=== PATIENT | male | born 1965 | race American Indian/Alaskan Native ===

== ENCOUNTER 2017-06-24 21:38 | Emergency (ER) | payer MEDICARE ==
[2017-06-24] MEDS ORDERED: TYLENOL ONE (22:03)
[2017-06-24] MEDS ORDERED: TYLENOL PO ONE (22:39)
--- NOTE | 2017-06-24 23:16 | XRay Report ---
FINAL REPORT PROCEDURE: XR ANKLE 3+V LT TECHNIQUE: LEFT ankle radiographs, AP, lateral, and oblique views. CPT 44668 HISTORY: Fall, ankle Pain COMPARISON: No prior studies are available for comparison. FINDINGS: Fracture (s) and/or Dislocation(s): No acute fracture is identified. A small well-defined ossific density identified at the tip of the medial malleolus measuring 4.6 millimeters.. Alignment: Normal. Joint space(s): Normal. Soft tissues: Normal. Bone mineralization: Mild degree osteophyte formation is noted. Foreign bodies: None. Calcaneal spurring: None. IMPRESSION: No acute fracture. An ossific density at the tip of the medial malleolus most likely represents an old avulsion fracture Osteoarthritis.
--- NOTE | 2017-06-24 23:17 | XRay Report ---
FINAL REPORT PROCEDURE: XR KNEE 3V LT TECHNIQUE: LEFT knee radiographs, 4 or more views, including AP, lateral, and oblique views. CPT 94383 HISTORY: Fall, knee Pain COMPARISON: No prior studies are available for comparison. FINDINGS: Fracture (s) and/or Dislocation(s): None . Alignment: Normal . Joint space(s): Severe degree narrowing of the medial tibiofemoral compartment is noted.. Soft tissues: Normal . Bone mineralization: Mild degree osteophyte formation is noted. Foreign bodies: None . IMPRESSION: Severe degree osteoarthritis. No acute fracture.
[2017-06-25] MEDS ORDERED: NORCO 5/325 PO ONE (02:13)
--- NOTE | 2017-06-25 02:28 | Emergency Department Report ---
HPI - General Chief Complaint: Extremity Injury, Lower Time Seen by Provider: 06/25/17 01:58 - [facility] HPI: Patient is a 52-year-old male with a history of polio and chronic pain presents to ED complaining of left knee pain from ground fall that happened about and Tuesday evening. Patient states he was in the kitchen when he tripped and fell. He denies loss of sensation, calf pain. ED Past Medical Hx - Past Medical History Previous Medical History?: Yes Additional medical history: Obesity. Left Leg Polio. Chronic Pain uses a pain clinic - Surgical History Past Surgical History?: Yes Additional Surgical History: Rt & Left Leg - Social History Smoking Status: Never Smoker Substance Use Type: None - Medications Home Medications: Home Medications Medication Instructions Recorded Confirmed Last Taken Type HYDROcodone/APAP 5-325 [[place] 1 each PO Q6H #20 tablet 06/25/17 Unknown Rx 5-325 mg TAB] Meloxicam [Mobic] 15 mg PO DAILY #20 tablet 06/25/17 Unknown Rx ED Review of Systems ROS: Stated complaint: ANKLE PAIN Other details as noted in HPI Constitutional: denies: chills, fever Eyes: denies: eye pain, eye discharge, vision change ENT: denies: ear pain, throat pain Respiratory: denies: cough, shortness of breath, wheezing Cardiovascular: denies: chest pain, palpitations Endocrine: no symptoms reported Gastrointestinal: denies: abdominal pain, nausea, diarrhea Genitourinary: denies: urgency, dysuria Musculoskeletal: arthralgia. denies: back pain, joint swelling Skin: denies: rash, lesions Neurological: denies: headache, weakness, paresthesias Psychiatric: denies: anxiety, depression Hematological/Lymphatic: denies: easy bleeding, easy bruising Physical Exam - Physical Exam Vital Signs: Vital Signs 06/24/17 21:50 Temperature 98.5 F Pulse Rate 96 H Respiratory 20 Rate Blood Pressure 157/93 [Right] O2 Sat by Pulse 97 Oximetry Physical Exam: GENERAL: Alert and oriented x3, no apparent distress, Normal Gait, atraumatic. HEAD: Head is normocephalic and a-traumatic. EYES: Extra ocular muscles are intact. Pupils are equal, round, and reactive to light and accommodation. NECK: Supple. Non edematous, No carotid bruits. No lymphadenopathy or thyromegaly. No C-spine tenderness LUNGS: Symetrical with respiration, No wheezing, no rales or crackles, CTAB. HEART: S1, S2 present, regular rate and rhythm without murmur, no rubs, no gallops. Non tender to palpation EXTREMITIES/MUSCULOSKELETAL: No cyanosis, clubbing, rash, lesions or edema. Full ROM bilaterally. UE/LE Pulses 2+ bilaterally. LE and UE 5+ strength bilaterally, straight leg raise negative bilaterally. Knee joint is intact, no tinnitus, nonerythematous, mild tenderness to palpation of the knee. Full Range of motion . NEUROLOGIC: The patient is cooperative with no focal neurologic deficits. Cranial nerves II through XII are grossly intact. Normal speech. Normal sensation in V1, V2, V3 bilaterally. Normal sensation in bilateral lower extremities, No loss of sensation, SKIN: Warm and dry, No lesions, No ulceration or induration present. ED Course Vital Signs 06/24/17 21:50 Temperature 98.5 F Pulse Rate 96 H Respiratory 20 Rate Blood Pressure 157/93 [Right] O2 Sat by Pulse 97 Oximetry ED Medical Decision Making - Medical Decision Making 52-year-old male presents with knee pain after fall ED course: Patient received Tylenol and [place] in ED Discussed patient will give referral for pain clinic and units. Discussed with patient would not be able to refill his chronic pain meds Given a refill of [place] up onto his able to follow-up with the pain clinic Discussed with patient to follow-up with pain clinic as refill as well as a primary care physician. Vital signs are normal patient is in no acute distress. Critical care attestation.: If time is entered above; I have spent that time in minutes in the direct care of this critically ill patient, excluding procedure time. ED Disposition Clinical Impression: Knee pain, chronic Qualifiers: Laterality: left Qualified Code(s): M25.562 - Pain in left knee; G89.29 - Other chronic pain Fall Qualifiers: Encounter type: initial encounter Qualified Code(s): W19.XXXA - Unspecified fall, initial encounter Disposition: TO HOME OR SELFCARE Is pt being admited?: No Does the pt Need Aspirin: No Condition: Stable Instructions: Arthralgia (ED), Knee Exercises (GEN), Knee Pain (ED) Additional Instructions: Follow-up with the primary care. Referrals given for pain management clinics around her area see -attached sheet If any symptoms worsen return to ED Prescriptions: HYDROcodone/APAP 5-325 [[place] 5-325 mg TAB] 1 each PO Q6H #20 tablet Meloxicam [Mobic] 15 mg PO DAILY #20 tablet Referrals: PRIMARY CARE,MD [Primary Care Provider] - 3-5 Days [facility] [Outside] - 3-5 Days [facility] [Outside] - 3-5 Days [facility] [Outside] - 3-5 Days Forms: Work/School Release Form(ED), Accompanied Note Time of Disposition: 02:35
[2017-06-25 04:05] VITALS: BP 159/97
== END 2017-06-25 04:07 | disposition home or self-care (01) ==
LOC: ED 21:38
DX: M25.562 Pain in left knee (principal); G89.29 Other chronic pain; E66.9 Obesity, unspecified; W01.0XXA Fall on same level from slipping, tripping and stumbling without subsequent striking against object, initial encounter; Y93.89 Activity, other specified; Y99.8 Other external cause status; Y92.89 Other specified places as the place of occurrence of the external cause
CPT/HCPCS: 99284

== ENCOUNTER 2019-01-11 10:16 | Emergency (ER) | payer MEDICARE ==
--- NOTE | 2019-01-11 11:09 | Emergency Department Report ---
ED Recheck HPI - General Chief Complaint: High BP Stated Complaint: HBP Time Seen by Provider: 01/11/19 10:54 Source: patient Mode of arrival: Ambulatory Limitations: No Limitations - History of Present Illness Initial Comments: pt is a 53 yo AA male who comes to ER for med refill. He does have an appnt Tues for total knee appnt. No cp. no sob. MD Complaint: medication refill request Symptoms Since Prior Visit: no new symptoms Context: ran out of medication Associated Symptoms: none - Related Data Previous Rx's Medication Instructions Recorded Last Taken Type Atenolol 50 mg PO BID #60 tablet 01/11/19 Unknown Rx Lisinopril [Zestril] 20 mg PO BID #60 tablet 01/11/19 Unknown Rx Allergies Allergy/AdvReac Type Severity Reaction Status Date / Time No Known Allergies Allergy Verified 06/24/17 22:10 ED Review of Systems ROS: Stated complaint: HBP Other details as noted in HPI Comment: no complaints ED Past Medical Hx - Past Medical History Hx Hypertension: Yes Hx Arthritis: Yes Additional medical history: Obesity. Left Leg Polio. Chronic Pain uses a pain clinic - Surgical History Additional Surgical History: Rt & Left Leg - Social History Smoking Status: Never Smoker Substance Use Type: None - Medications Home Medications: Home Medications Medication Instructions Recorded Confirmed Last Taken Type Atenolol 50 mg PO BID #60 tablet 01/11/19 Unknown Rx Lisinopril [Zestril] 20 mg PO BID #60 tablet 01/11/19 Unknown Rx ED Physical Exam - General Limitations: No Limitations General appearance: alert, in no apparent distress - Head Head exam: Present: atraumatic - Eye Eye exam: Present: normal appearance, PERRL Pupils: Present: normal accommodation - ENT ENT exam: Present: mucous membranes moist - Neck Neck exam: Present: normal inspection - Respiratory Respiratory exam: Present: normal lung sounds bilaterally - Cardiovascular Cardiovascular Exam: Present: regular rate - GI/Abdominal GI/Abdominal exam: Present: soft, normal bowel sounds - Rectal Rectal exam: Present: deferred - Extremities Exam Extremities exam: Present: normal inspection, full ROM - Back Exam Back exam: Present: normal inspection, full ROM - Neurological Exam Neurological exam: Present: alert, oriented X3 - Psychiatric Psychiatric exam: Present: normal affect, normal mood - Skin Skin exam: Present: warm, dry ED Course - Reevaluation(s) Reevaluation #1: 01/11/19 12:19 VS noted normal as hand written on record. Asked RN to place in chart. ED Recheck MDM - Differential Diagnosis med refill Critical care attestation.: If time is entered above; I have spent that time in minutes in the direct care of this critically ill patient, excluding procedure time. ED Disposition Clinical Impression: Medication refill, HTN (hypertension) Disposition: TO HOME OR SELFCARE Is pt being admited?: No Does the pt Need Aspirin: No Condition: Stable Instructions: Hypertension (ED) Additional Instructions: follow up with pcp take meds as instructed low salt diet Prescriptions: Atenolol 50 mg PO BID #60 tablet Lisinopril [Zestril] 20 mg PO BID #60 tablet Referrals: EDSON CARLTON [Primary Care Provider] - 3-5 Days Time of Disposition: 11:10
== END 2019-01-11 11:15 | disposition home or self-care (01) ==
LOC: ED 10:16
CPT/HCPCS: 99282

== ENCOUNTER 2019-06-04 22:37 | Emergency (ER) | payer MEDICARE ==
[2019-06-05] MEDS ORDERED: ZESTRIL PO ONE (01:26)
[2019-06-05] MEDS ORDERED: HCTZ PO ONE (01:26)
[2019-06-05] MEDS ORDERED: TYLENOL PO ONE (01:27)
--- NOTE | 2019-06-05 02:08 | Emergency Department Report ---
ED General Adult HPI - General Chief complaint: High BP Stated complaint: HIGH BP Time Seen by Provider: 06/05/19 01:26 Source: patient Mode of arrival: Wheelchair Limitations: Physical Limitation - History of Present Illness Initial comments: The patient is a 54-year-old -[place] male who presents for medication refill has hx of htn , usually controlled with lisinopril and hctz states he has been out of medication for 1 week denies complains of 2 /10 headache, pt states similar headaches in past in same location and intensity, pt denies cp no n/v no back pain no sob no lightheadedness no dizziness. pt is a/ox 3 ambulatory with steady gait. Ambulatory with steady gait. Severity scale (0 -10): 4 - Related Data Previous Rx's Medication Instructions Recorded Last Taken Type Atenolol 50 mg PO BID #60 tablet 01/11/19 Unknown Rx Lisinopril [Zestril] 20 mg PO BID #60 tablet 01/11/19 Unknown Rx Acetaminophen [Acetaminophen TAB] 1,000 mg PO Q6HR #30 tablet 06/05/19 Unknown Rx Lisinopril [Zestril TAB] 40 mg PO QDAY #30 tablet 06/05/19 Unknown Rx hydroCHLOROthiazide [HCTZ] 25 mg PO QDAY #30 tablet 06/05/19 Unknown Rx Allergies Allergy/AdvReac Type Severity Reaction Status Date / Time No Known Allergies Allergy Verified 06/24/17 22:10 ED Review of Systems ROS: Stated complaint: HIGH BP Other details as noted in HPI Constitutional: denies: chills, fever Eyes: denies: eye pain, eye discharge, vision change ENT: denies: ear pain, throat pain Respiratory: denies: cough, shortness of breath, wheezing Cardiovascular: denies: chest pain, palpitations Endocrine: no symptoms reported Gastrointestinal: denies: abdominal pain, nausea, diarrhea Genitourinary: denies: urgency, dysuria Musculoskeletal: denies: back pain, joint swelling, arthralgia Skin: denies: rash, lesions Neurological: headache. denies: weakness, numbness, paresthesias, confusion, abnormal gait, vertigo Psychiatric: denies: anxiety, depression Hematological/Lymphatic: denies: easy bleeding, easy bruising ED Past Medical Hx - Past Medical History Previous Medical History?: Yes Hx Hypertension: Yes Hx Arthritis: Yes Additional medical history: Obesity. Right Leg Polio. Chronic Pain uses a pain clinic - Surgical History Past Surgical History?: Yes Additional Surgical History: Rt & Left Leg. Left leg Knee Replacement - Social History Smoking Status: Never Smoker - Medications Home Medications: Home Medications Medication Instructions Recorded Confirmed Last Taken Type Atenolol 50 mg PO BID #60 tablet 01/11/19 Unknown Rx Lisinopril [Zestril] 20 mg PO BID #60 tablet 01/11/19 Unknown Rx Acetaminophen [Acetaminophen TAB] 1,000 mg PO Q6HR #30 tablet 06/05/19 Unknown Rx Lisinopril [Zestril TAB] 40 mg PO QDAY #30 tablet 06/05/19 Unknown Rx hydroCHLOROthiazide [HCTZ] 25 mg PO QDAY #30 tablet 06/05/19 Unknown Rx ED Physical Exam - General Limitations: Physical Limitation General appearance: alert, in no apparent distress - Head Head exam: Present: atraumatic, normocephalic - Eye Eye exam: Present: normal appearance, PERRL, EOMI Pupils: Present: normal accommodation - ENT ENT exam: Present: normal orophraynx, mucous membranes moist, TM's normal bilaterally, normal external ear exam - Neck Neck exam: Present: normal inspection, full ROM. Absent: tenderness, lymphadenopathy, thyromegaly - Respiratory Respiratory exam: Present: normal lung sounds bilaterally, chest wall tenderness. Absent: respiratory distress, wheezes, rales, rhonchi, stridor - Cardiovascular Cardiovascular Exam: Present: regular rate, normal rhythm, normal heart sounds. Absent: systolic murmur, diastolic murmur, rubs, gallop - GI/Abdominal GI/Abdominal exam: Present: soft, normal bowel sounds. Absent: distended, tenderness, guarding, rebound, rigid, bruit, hernia - Rectal Rectal exam: Present: deferred - Extremities Exam Extremities exam: Present: normal inspection, full ROM, normal capillary refill. Absent: tenderness, pedal edema, joint swelling, calf tenderness - Back Exam Back exam: Present: normal inspection, full ROM. Absent: tenderness, CVA tenderness (R), CVA tenderness (L), paraspinal tenderness, rash noted - Neurological Exam Neurological exam: Present: alert, oriented X3, CN II-XII intact, normal gait, reflexes normal. Absent: motor sensory deficit - Psychiatric Psychiatric exam: Present: normal affect, normal mood - Skin Skin exam: Present: warm, dry, intact, normal color. Absent: rash ED Course Vital Signs 06/04/19 22:45 Temperature 98.7 F Pulse Rate 85 Respiratory 18 Rate Blood Pressure 158/85 O2 Sat by Pulse 97 Oximetry ED Medical Decision Making - Medical Decision Making Headache is improved with medications given in ED plan refill Lisinopril and hydrochlorothiazide patient will follow with PCP in 3 days patient will return should symptoms worsen patient is alert and oriented 3 and a steady gait patient with no acute distress at this time. The wrist Critical care attestation.: If time is entered above; I have spent that time in minutes in the direct care of this critically ill patient, excluding procedure time. ED Disposition Clinical Impression: Essential (primary) hypertension Disposition: - TO HOME OR SELFCARE Is pt being admited?: No Does the pt Need Aspirin: No Condition: Stable Instructions: Hypertension (ED) Prescriptions: Acetaminophen [Acetaminophen TAB] 1,000 mg PO Q6HR #30 tablet hydroCHLOROthiazide [HCTZ] 25 mg PO QDAY #30 tablet Lisinopril [Zestril TAB] 40 mg PO QDAY #30 tablet Referrals: PRIMARY CARE, [Primary Care Provider] - 3-5 Days Forms: Work/School Release Form(ED) Time of Disposition: 02:18
[2019-06-05 02:39] VITALS: BP 179/85
== END 2019-06-05 02:37 | disposition home or self-care (01) ==
LOC: ED 22:37
DX: I10 Essential (primary) hypertension (principal); M19.90 Unspecified osteoarthritis, unspecified site; G89.29 Other chronic pain; Z98.890 Other specified postprocedural states; Z96.652 Presence of left artificial knee joint; Z79.899 Other long term (current) drug therapy
CPT/HCPCS: 99282

== ENCOUNTER 2019-06-07 21:29 | Emergency (ER) | payer MEDICARE ==
[2019-06-07 21:41] VITALS: BP 153/77
--- NOTE | 2019-06-07 21:53 | Event Note ---
ED Screening Note ED Screening Note: Pt states that he fell out of the bed c/o left knee pain, right elbow pain laceration to the left side of the face pt is on a pain contract pt states he had a knee replacement on the left knee on Jan 16 2019 no LOC last tetanus in Dec 2018 no allergies to meds This initial assessment/diagnostic orders/clinical plan/treatment(s) is/are subject to change based on patients health status, clinical progression and re- assessment by fellow clinical providers in the ED. Further treatment and workup at subsequent clinical providers discretion. Patient/guardian urged not to elope from the ED as their condition may be serious if not clinically assessed and managed. Initial orders include: XR of the left knee and right elbow
--- NOTE | 2019-06-07 22:49 | XRay Report ---
LEFT KNEE 3 VIEWS INDICATION: fall out of bed, left knee pain. COMPARISON: No relevant prior imaging study available. FINDINGS: Left knee arthroplasty is noted in expected position. On the first image (AP) there is a subtle thin linear lucency in the supracondylar distal left femora l metaphysis which does not extend to the cortex. This is not seen on additional views and no cortica l disruption is seen. This may be a vascular channel but is nonspecific. There is mild soft tissue swelling about the knee. No definite joint effusion. IMPRESSION: 1. Subtle linear thin lucency in the distal left femoral metaphysis in the periprosthetic supracondyl ar femur, as above. This may be an artifact. This could conceivably be a subtle, nondisplaced fractur e; however, no cortical disruption is seen and this is only seen on one view. Correlate clinically. Signer Name: Ronald Hernandez MD Signed: 06/07/2019 10:45 PM Workstation Name: [id number]
--- NOTE | 2019-06-07 23:43 | Emergency Department Report ---
ED Fall HPI - General Chief Complaint: Fall Stated Complaint: CUT ON LEFT EAR Time Seen by Provider: 06/07/19 21:50 Source: patient, family Mode of arrival: Ambulatory - History of Present Illness Initial Comments: This is a 54-year-old male that presents to the emergency room with painful left knee and a laceration to the left ear from 3-4 hours ago. Past medical history of obesity, chronic pain, hypertension, polio affecting her right lower extremity. Patient states he fell out of his bed. He hit his head on the side of his wheelchair. His noted bleeding from left ear. Patient also reports pain to her right elbow with movement. He denies loss of consciousness, visual changes, hearing loss, swelling, paresthesias. MD Complaint: fall Onset/Timin -: hour(s) Fall From: out of bed When Fall Occurred: 1-3 hours [employer] Fall Witnessed: yes, by family Place Fall Occurred: home Loss of Consciousness: none Prolonged Down Time?: no Symptoms Prior to Fall: none Location: face (left ear) Location - Extremities: Left: Knee Severity: moderate Severity scale (0 -10): 8 Quality: aching Context: history of frequent falls Associated Symptoms: denies - Related Data Previous Rx's Medication Instructions Recorded Last Taken Type Atenolol 50 mg PO BID #60 tablet 01/11/19 Unknown Rx Lisinopril [Zestril] 20 mg PO BID #60 tablet 01/11/19 Unknown Rx Acetaminophen [Acetaminophen TAB] 1,000 mg PO Q6HR #30 tablet 06/05/19 Unknown Rx Lisinopril [Zestril TAB] 40 mg PO QDAY #30 tablet 06/05/19 Unknown Rx hydroCHLOROthiazide [HCTZ] 25 mg PO QDAY #30 tablet 06/05/19 Unknown Rx Atenolol [Tenormin] 50 mg PO BID #60 tab 06/07/19 Unknown Rx cephALEXin [Keflex] 500 mg PO Q12HR #14 cap 06/08/19 Unknown Rx Allergies Allergy/AdvReac Type Severity Reaction Status Date / Time No Known Allergies Allergy Verified 06/07/19 21:43 ED Review of Systems ROS: Stated complaint: CUT ON LEFT EAR Other details as noted in HPI Constitutional: denies: chills, fever Respiratory: denies: cough, shortness of breath, wheezing Cardiovascular: denies: chest pain, palpitations Gastrointestinal: denies: abdominal pain, nausea, diarrhea Musculoskeletal: arthralgia (left knee and right elbow.). denies: back pain, joint swelling Skin: lesions (laceration left ear). denies: rash Neurological: denies: headache, weakness, paresthesias Psychiatric: denies: anxiety, depression ED Past Medical Hx - Past Medical History Hx Hypertension: Yes Hx Arthritis: Yes Additional medical history: Obesity. Right Leg Polio. Chronic Pain uses a pain clinic - Surgical History Additional Surgical History: Rt & Left Leg. Left leg Knee Replacement - Social History Smoking Status: Never Smoker Substance Use Type: None - Medications Home Medications: Home Medications Medication Instructions Recorded Confirmed Last Taken Type Atenolol 50 mg PO BID #60 tablet 01/11/19 Unknown Rx Lisinopril [Zestril] 20 mg PO BID #60 tablet 01/11/19 Unknown Rx Acetaminophen [Acetaminophen TAB] 1,000 mg PO Q6HR #30 tablet 06/05/19 Unknown Rx Lisinopril [Zestril TAB] 40 mg PO QDAY #30 tablet 06/05/19 Unknown Rx hydroCHLOROthiazide [HCTZ] 25 mg PO QDAY #30 tablet 06/05/19 Unknown Rx Atenolol [Tenormin] 50 mg PO BID #60 tab 06/07/19 Unknown Rx cephALEXin [Keflex] 500 mg PO Q12HR #14 cap 06/08/19 Unknown Rx ED Physical Exam - General Limitations: Physical Limitation General appearance: alert, in no apparent distress, obese (morbidly) - Respiratory Respiratory exam: Present: normal lung sounds bilaterally. Absent: respiratory distress - Cardiovascular Cardiovascular Exam: Present: regular rate, normal rhythm. Absent: systolic murmur, diastolic murmur, rubs, gallop - GI/Abdominal GI/Abdominal exam: Present: soft, normal bowel sounds. Absent: distended, tenderness, guarding, rebound, rigid - Expanded Lower Extremity Exam Left Knee exam: Present: tenderness (tenderness to lateral patella), pain w/ pronation/supination. Absent: full ROM (Limited range of motion secondary), swelling, abrasion, laceration, ecchymosis, deformity, crepidus, full knee extension Lower Leg exam: Present: full ROM. Absent: swelling, abrasion, laceration, ecchymosis, deformity, crepidus, erythema, palpable cord, Ricarda's sign Ankle exam: Present: normal inspection, full ROM Foot/Toe exam: Present: normal inspection, full ROM Neuro vascular tendon exam: Present: no vascular compromise Gait: Positive: not tested/not observed - Neurological Exam Neurological exam: Present: alert, oriented X3 - Psychiatric Psychiatric exam: Present: normal affect, normal mood - Skin Skin exam: Present: warm, dry, normal color, other. Absent: intact, rash - Expanded Skin Exam Expanded Type of lesion: Present: laceration Distribution of rash: other (john of helix) Description of rash: Present: size (1 centimeter irregular into the dermis, flap, clean), erythematous. Absent: discharge ED Course Vital Signs 06/07/19 21:37 Temperature 98.6 F Pulse Rate 75 Respiratory 18 Rate Blood Pressure 153/77 O2 Sat by Pulse 98 Oximetry - Laceration /Wound Repair Left Anterior Proximal Face Wound Location: face (left ear, john of helix) Wound Length (cm): 1 Wound's Depth, Shape: into muscle, irregular, flap Wound Explored: clean Irrigated w/ Saline (ccs): 20 Betadine Prep?: Yes Anesthesia: 1% Lidocaine Volume Anesthetic (ccs): 2 Wound Repaired With: sutures Suture Size/Type: 6:0 Number of Sutures: 5 Layer Closure?: No Sterile Dressing Applied?: Yes ED Medical Decision Making - Radiology Data Radiology results: report reviewed LEFT KNEE 3 VIEWS INDICATION: fall out of bed, left knee pain. COMPARISON: No relevant prior imaging study available. FINDINGS: Left knee arthroplasty is noted in expected position. On the first image (AP) there is a subtle thin linear lucency in the supracondylar distal left femoral metaphysis which does not extend to the cortex. This is not seen on additional views and no cortical disruption is seen. This may be a vascular channel but is nonspecific. There is mild soft tissue swelling about the knee. No definite joint effusion. IMPRESSION: 1. Subtle linear thin lucency in the distal left femoral metaphysis in the periprosthetic supracondylar femur, as above. This may be an artifact. This could conceivably be a subtle, nondisplaced fracture; however, no cortical disruption is seen and this is only seen on one view. Correlate clinically. - Medical Decision Making Patient was examined by me. Past medical history obesity, hypertension, chronic pain, polio affects right lower extremity. Vitals are normal and patient is in no acute distress. Sasha once while in the ER. Obtained a x-ray of left knee. X-rays dictated by radiologist and report reviewed by myself. Subtle linear thin lucency in the distal left femoral metaphysis in the periprosthetic supracondylar femur, as above. This may be an artifact. This could conceivably be a subtle, nondisplaced fracture; however, no cortical disruption is seen and this is only seen on one view. Correlate clinically. A knee brace applied to left knee. The laceration was closed with sutures, review note. Patient informed of results. Referral to a therapeutic surgeon for follow-up. Patient is followed by pain management and instructed to continue taking current pain medication. Start atenolol 50 mg by mouth twice a day. Plan discussed with patient to discharge home and treat outpatient. He agrees with ER plan. Patient discharged home in stable condition. Follow up with PCP in 2-3 days. Critical care attestation.: If time is entered above; I have spent that time in minutes in the direct care of this critically ill patient, excluding procedure time. ED Disposition Clinical Impression: Medication refill Knee pain, acute Qualifiers: Laterality: left Qualified Code(s): M25.562 - Pain in left knee Laceration of left ear Qualifiers: Encounter type: initial encounter Qualified Code(s): S01.312A - Laceration without foreign body of left ear, initial encounter Fall Qualifiers: Encounter type: initial encounter Qualified Code(s): W19.XXXA - Unspecified fall, initial encounter Disposition: TO HOME OR SELFCARE Is pt being admited?: No Does the pt Need Aspirin: No Condition: Stable Instructions: Laceration (ED), Arthralgia (ED), Suture Care (ED) Additional Instructions: Take antibiotics as prescribed for the full course. Keep wound clean and dry for 48 hours. Have sutures removed in 7-10 days by your primary care doctor or return to the emergency room. Follow-up with orthopedic surgeon as discussed for visit for further evaluation of left knee. When applying weight to the left lower extremity. Continue taking your scheduled pain medication to decrease pain. Return to the emergency room if oriented, swollen, foul discharge, or fever. Prescriptions: cephALEXin [Keflex] 500 mg PO Q12HR #14 cap Atenolol [Tenormin] 50 mg PO BID #60 tab Referrals: EDSON CARLTON MD [Primary Care Provider] - 3-5 Days CLAUDIA SIFUENTES MD [Staff Physician] - 3-5 Days [facility] [Provider Group] - 3-5 Days Time of Disposition: 23:53
[2019-06-07] MEDS ORDERED: NORCO 5/325 PO ONE (23:48)
[2019-06-08] MEDS ORDERED: XYLOCAINE 2% INFILTRATI ONE (00:37)
== END 2019-06-08 01:40 | disposition home or self-care (01) ==
LOC: ED 21:29
DX: S01.312A Laceration without foreign body of left ear, initial encounter (principal); M25.562 Pain in left knee; M25.522 Pain in left elbow; Z76.0 Encounter for issue of repeat prescription; I10 Essential (primary) hypertension; M19.90 Unspecified osteoarthritis, unspecified site; G89.29 Other chronic pain; Z96.652 Presence of left artificial knee joint; Z79.899 Other long term (current) drug therapy; W06.XXXA Fall from bed, initial encounter; Y93.84 Activity, sleeping; Y92.019 Unspecified place in single-family (private) house as the place of occurrence of the external cause; Y99.8 Other external cause status
CPT/HCPCS: 29530

== ENCOUNTER 2020-01-18 23:10 | Emergency (ER) | payer MEDICARE ==
[2020-01-19] MEDS ORDERED: SODIUM CHLORIDE 0.9% 1000 ML 1,000 ML IV ONE (00:43)
--- NOTE | 2020-01-19 00:44 | Emergency Department Report ---
- General Chief complaint: Weakness Stated complaint: WEAKNESS Time Seen by Provider: 01/19/20 00:42 Source: patient, EMS Mode of arrival: Wheelchair Limitations: Physical Limitation - History of Present Illness Initial comments: Patient is a 54-year-old male that presents emergency room with multiple complaints. Patient is complaining of generalized weakness. Patient states he is always had leg weakness and has not been ambulatory for 1 year. Patient states he is now having arm weakness and numbness. Patient states his arm weakness and arm numbness have been going on for 2 weeks. Patient states his arm numbness is worse with movement of his neck. Patient also complains he is having increased neck pain. Patient states she has a past medical history of chronic neck pain and back pain. Patient states his back pain has been worsening over the past 2 weeks but he is due for an epidural shot to his back. Patient states he saw his PCP yesterday. Patient denies facial numbness.. Patient denies facial drooping. Patient states he is on disability for polio as a child. Patient states he has a past medical history of arthritis and hypertension, gout, chronic neck and back pain. Patient gets regular epidurals for his neck and back pain. Patient states he had a knee replacement to his right and left knees and he has not been ambulatory since. Patient states he is nonambulatory. Patient denies past medical history of diabetes. MD Complaint: generalized weakness -: Gradual Location: generalized Quality: tingling, numbness Consistency: constant Improves with: rest Worsens with: movement Associated Symptoms: denies: chest pain, confusion, dark stools, diaphoresis, dysuria, easy bruising, fever/chills, headaches, loss of appetite, nausea/vomiting, myalgias, rash, shortness of breath, syncope - Related Data Previous Rx's Medication Instructions Recorded Last Taken Type Lisinopril [Zestril] 20 mg PO BID #60 tablet 01/11/19 Unknown Rx atenoloL [Atenolol] 50 mg PO BID #60 tablet 01/11/19 Unknown Rx Acetaminophen [Acetaminophen TAB] 1,000 mg PO Q6HR #30 tablet 06/05/19 Unknown Rx hydroCHLOROthiazide [HCTZ] 25 mg PO QDAY #30 tablet 06/05/19 Unknown Rx lisinopriL [Zestril TAB] 40 mg PO QDAY #30 tablet 06/05/19 Unknown Rx atenoloL [Tenormin] 50 mg PO BID #60 tab 06/07/19 Unknown Rx cephALEXin [Keflex] 500 mg PO Q12HR #14 cap 06/08/19 Unknown Rx Cyclobenzaprine HCl [Flexeril 5 MG 5 mg PO TID PRN #15 tab 01/19/20 Unknown Rx TAB] methylPREDNISolone [Medrol 4MG 4 mg PO DAILY 6 Days #1 tab.ds.pk 01/19/20 Unknown Rx DOSEPAK (21 tabs)] Allergies Allergy/AdvReac Type Severity Reaction Status Date / Time No Known Allergies Allergy Verified 06/07/19 21:43 ED Review of Systems ROS: Stated complaint: WEAKNESS Other details as noted in HPI Constitutional: weakness. denies: chills, fever Eyes: denies: eye pain, eye discharge, vision change ENT: denies: ear pain, throat pain Respiratory: denies: cough, shortness of breath, wheezing Cardiovascular: denies: chest pain, palpitations Endocrine: no symptoms reported Gastrointestinal: denies: abdominal pain, nausea, diarrhea Genitourinary: denies: urgency, dysuria Musculoskeletal: denies: joint swelling, arthralgia Skin: denies: rash, lesions Neurological: weakness, numbness. denies: headache, paresthesias Psychiatric: denies: anxiety, depression Hematological/Lymphatic: denies: easy bleeding, easy bruising ED Past Medical Hx - Past Medical History Previous Medical History?: Yes Hx Hypertension: Yes Hx Arthritis: Yes Additional medical history: Obesity. Right Leg Polio. Chronic Pain uses a pain clinic ,gout - Surgical History Past Surgical History?: Yes Additional Surgical History: Rt & Left Leg. Left leg Knee Replacement - Family History Family history: no significant - Social History Smoking Status: Never Smoker Substance Use Type: None - Medications Home Medications: Home Medications Medication Instructions Recorded Confirmed Last Taken Type Lisinopril [Zestril] 20 mg PO BID #60 tablet 01/11/19 Unknown Rx atenoloL [Atenolol] 50 mg PO BID #60 tablet 01/11/19 Unknown Rx Acetaminophen [Acetaminophen TAB] 1,000 mg PO Q6HR #30 tablet 06/05/19 Unknown Rx hydroCHLOROthiazide [HCTZ] 25 mg PO QDAY #30 tablet 06/05/19 Unknown Rx lisinopriL [Zestril TAB] 40 mg PO QDAY #30 tablet 06/05/19 Unknown Rx atenoloL [Tenormin] 50 mg PO BID #60 tab 06/07/19 Unknown Rx cephALEXin [Keflex] 500 mg PO Q12HR #14 cap 06/08/19 Unknown Rx Cyclobenzaprine HCl [Flexeril 5 MG 5 mg PO TID PRN #15 tab 01/19/20 Unknown Rx TAB] methylPREDNISolone [Medrol 4MG 4 mg PO DAILY 6 Days #1 tab.ds.pk 01/19/20 Unknown Rx DOSEPAK (21 tabs)] ED Physical Exam - General Limitations: Physical Limitation General appearance: alert, in no apparent distress - Head Head exam: Present: atraumatic, normocephalic - Eye Eye exam: Present: normal appearance, PERRL Pupils: Present: normal accommodation - ENT ENT exam: Present: mucous membranes moist - Neck Neck exam: Present: normal inspection - Respiratory Respiratory exam: Present: normal lung sounds bilaterally. Absent: respiratory distress, wheezes, rales - Cardiovascular Cardiovascular Exam: Present: regular rate, normal rhythm. Absent: systolic murmur, diastolic murmur, rubs, gallop - GI/Abdominal GI/Abdominal exam: Present: soft, normal bowel sounds. Absent: distended, tenderness, guarding - Rectal Rectal exam: Present: deferred - Extremities Exam Extremities exam: Present: normal inspection - Back Exam Back exam: Present: normal inspection - Neurological Exam Neurological exam: Present: alert, oriented X3 - Psychiatric Psychiatric exam: Present: normal affect, normal mood - Skin Skin exam: Present: warm, dry, intact, normal color. Absent: rash - Assessment Assessment Interval: Baseline - Level of Consciousness 1a. Level of Consciousness: alert/keenly responsive - LOC Questions 1b. LOC Questions: answers both correctly - LOC Command 1c. LOC Commands: performs tasks correctly - Best Gaze 2. Best Gaze: normal - Visual 3. Visual: no visual loss - Facial Palsy 4. Facial Palsy: normal symmetrical movement - Motor Arm 5a. Motor Arm Left: no drift 5b. Motor Arm Right: no drift - Motor Leg 6a. Motor Leg Left: no movement 6b. Motor Leg Right: no movement - Limb Ataxia 7. Limb Ataxia: absent - Sensory 8. Sensory: normal - Best Language 9. Best Language: no aphasia - Dysarthria 10. Dysarthria: normal - Extinction and Inattention 11. Extinction/Inattention: no abnormality - Scoring Total Score: 8 Stroke Severity: Moderate Stroke ED Course Vital Signs 01/18/20 01/19/20 01/19/20 23:15 00:43 02:19 Pulse Rate 85 65 64 Respiratory 20 18 16 Rate Blood Pressure 161/90 Blood Pressure 168/94 [Left] O2 Sat by Pulse 96 96 99 Oximetry 01/19/20 03:22 Pulse Rate 85 Respiratory 18 Rate Blood Pressure Blood Pressure 163/97 [Left] O2 Sat by Pulse 99 Oximetry - Reevaluation(s) Reevaluation #1: I discussed all results and clinical findings with patient. I discussed plan of care with patient. Patient agrees with plan of care. Patient is stable for discharge. Patient will be discharged home. Patient given discharge instructions. Patient voiced understanding of discharge instructions. Patient states he is feeling better. Patient states is able to move his arms much better. Patient states that the pain and numbness in his arms have res olved. Patient states he is ready to go home. 01/19/20 04:23 - Consultations Consultation #1: I discussed case with neurologist, Dr. Lemons. He recommends outpatient follow-up and an MRI as an outpatient. 01/19/20 04:20 ED Medical Decision Making - Lab Data Result diagrams: 01/19/20 01:19 01/19/20 01:19 Laboratory Results - last 24 hr 01/19/20 01/19/20 01/19/20 01:19 01:19 03:23 WBC 8.0 RBC 4.97 Hgb 13.0 Hct 40.3 MCV 81 L MCH 26 L MCHC 32 RDW 14.5 Plt Count 264 Lymph % (Auto) 19.0 [place] % (Auto) 4.0 Eos % (Auto) 4.1 Baso % (Auto) 0.2 Lymph # 1.5 [place] # 0.3 Eos # 0.3 Baso # 0.0 Seg Neutrophils % 72.7 H Seg Neutrophils # 5.8 Sodium 139 Potassium 4.8 Chloride 103.6 Carbon Dioxide 23 Anion Gap 17 BUN 14 Creatinine 0.8 Estimated GFR > 60 BUN/Creatinine Ratio 18 Glucose 121 H Calcium 9.1 Magnesium 2.40 H Total Bilirubin 0.30 AST 24 ALT 18 Alkaline Phosphatase 103 Troponin T < 0.010 Total Protein 6.9 Albumin 4.2 Albumin/Globulin Ratio 1.6 Urine Color Yellow Urine Turbidity Clear Urine pH 6.0 Ur Specific [place] 1.014 Urine Protein <15 mg/dl Urine Glucose (UA) Neg Urine Ketones Neg Urine Blood Sm Urine Nitrite Neg Urine Bilirubin Neg Urine Urobilinogen < 2.0 Ur Leukocyte Esterase Neg Urine WBC (Auto) 1.0 Urine RBC (Auto) 2.0 U Epithel Cells (Auto) < 1.0 Urine Bacteria (Auto) 1+ Urine Mucus Few - EKG Data -: EKG Interpreted by Me EKG shows normal: sinus rhythm, axis, intervals, QRS complexes, ST-T waves Rate: normal - Radiology Data Radiology results: report reviewed, image reviewed interpreted by me: No acute findings on chest x-ray. CT head cervical spine INDICATION: Neck pain following fall FINDINGS: The vertebral body heights are intact with no compression fractures seen. There is disc space narrowing throughout the cervical spine with anterior and posterior spurring. No fracture or subluxation. No epidural hematoma. There is moderate facet arthropathy without posterior element fracture. Midline spurring results in canal stenosis at several levels. No odontoid or spinous process fracture. No acute abnormality. IMPRESSION: Relatively advanced cervical spondylosis but no acute abnormality. Head CT without intravenous contrast INDICATION: Right-sided weakness COMPARISON: None FINDINGS: The ventricles are normal in size and position. No hemorrhage or extra-axial fluid collection. No edema or mass effect. No focal infarct seen. Portions of the sinuses visualized are clear. No skull fracture identified. IMPRESSION: Negative head CT - Medical Decision Making Patient is a 54-year-old male that presents emergency room complaints of neck pain, arm weakness, generalized weakness, numbness tingling to the right arm. Patient symptoms been going on for 2 weeks. Patient saw his primary care and he said nothing was done. Patient had labs done were unremarkable. Patient was given fluids and steroids and his symptoms improved. Due to the patient complaints patient had a head CT, neck CT and a chest x-ray and EKG. EKG shows no acute findings. Head CT shows no acute findings. Neck CT shows no acute findings. Patient discharged home. Patient stable for discharge. - Differential Diagnosis Weakness, nerve entrapment, dehydration, electrolyte imbalance, neck pain Critical care attestation.: If time is entered above; I have spent that time in minutes in the direct care of this critically ill patient, excluding procedure time. ED Disposition Clinical Impression: Weakness, Arm numbness, Neck pain Chronic back pain Qualifiers: Back pain location: low back pain Back pain laterality: bilateral Sciatica presence: without sciatica Qualified Code(s): M54.5 - Low back pain Disposition: TO HOME OR SELFCARE Is pt being admited?: No Does the pt Need Aspirin: No Condition: Stable Instructions: Cervical Sprain (ED), Chronic Back Pain (ED), Back Pain (ED) Additional Instructions: I patient to follow-up with primary care in 2 to 3 days. Patient to follow-up with neurologist in 2 to 3 days. Patient to rest. Patient to increase water. Patient to take Tylenol or ibuprofen as needed for pain. Patient to take meds as directed. Patient to return to the ER if condition worsens, changes or new symptoms arise. Prescriptions: Cyclobenzaprine HCl [Flexeril 5 MG TAB] 5 mg PO TID PRN #15 tab PRN Reason: Spasms methylPREDNISolone [Medrol 4MG DOSEPAK (21 tabs)] 4 mg PO DAILY 6 Days #1 tab.aries Referrals: PRIMARY CARE, [Primary Care Provider] - 2-3 Days Time of Disposition: 04:27
--- NOTE | 2020-01-19 01:38 | XRay Report ---
CHEST 1 VIEW INDICATION / CLINICAL INFORMATION: Weakness. COMPARISON: None available. FINDINGS: SUPPORT DEVICES: None. HEART / MEDIASTINUM: No significant abnormality. LUNGS / PLEURA: No significant pulmonary or pleural abnormality. No pneumothorax. ADDITIONAL FINDINGS: No significant additional findings. IMPRESSION: 1. No significant change Signer Name: Atul Pederson MD Signed: 01/19/2020 1:34 AM Workstation Name: [id number]
[2020-01-19 01:45] LABS: Basophils % (Auto) 0.2 % (0.0-1.8); Eosinophils # (Auto) 0.3 K/mm3 (0.0-0.4); Eosinophils % (Auto) 4.1 % (0.0-4.3); Hematocrit 40.3 % (35.5-45.6); Lymphocytes # (Auto) 1.5 K/mm3 (1.2-5.4); Mean Corpuscular HGB Conc 32 % (32-34); Mean Corpuscular Volume 81 fl (84-94); Monocytes # (Auto) 0.3 K/mm3 (0.0-0.8); Platelet Count 264 K/mm3 (140-440); Red Blood Count 4.97 M/mm3 (3.65-5.03); Red Cell Distribution Width 14.5 % (13.2-15.2)
[2020-01-19 02:04] LABS: Alanine Aminotransferase 18 units/L (7-56); Albumin 4.2 g/dL (3.9-5); BUN/Creatinine Ratio 18; Blood Urea Nitrogen 14 mg/dL (9-20); Calcium 9.1 mg/dL (8.4-10.2); Hemolysis Index 10
--- NOTE | 2020-01-19 02:05 | Cat Scan Report ---
Head CT without intravenous contrast INDICATION: Right-sided weakness COMPARISON: None FINDINGS: The ventricles are normal in size and position. No hemorrhage or extra-axial fluid collecti on. No edema or mass effect. No focal infarct seen. Portions of the sinuses visualized are clear. No skull fracture identified. IMPRESSION: Negative head CT Automated exposure control was utilized to diminish radiation dose Signer Name: Atul Pederson MD Signed: 01/19/2020 2:00 AM Workstation Name: [id number]
--- NOTE | 2020-01-19 02:15 | Cat Scan Report ---
CT head cervical spine INDICATION: Neck pain following fall FINDINGS: The vertebral body heights are intact with no compression fractures seen. There is disc spa ce narrowing throughout the cervical spine with anterior and posterior spurring. No fracture or sublu xation. No epidural hematoma. There is moderate facet arthropathy without posterior element fracture. Midline spurring results in canal stenosis at several levels. No odontoid or spinous process fractur e. No acute abnormality. IMPRESSION: Relatively advanced cervical spondylosis but no acute abnormality. All CT scans at this location are performed using CT dose reduction for ALARA by means of automated e xposure control Signer Name: Atul Pederson MD Signed: 01/19/2020 2:10 AM Workstation Name: [id number]
[2020-01-19] MEDS ORDERED: methylPREDNISolone Sod Succinate 125 MG/2 ML INJ IV ONE (02:25)
[2020-01-19 03:22] VITALS: BP 163/97
[2020-01-19 03:48] LABS: Bacteria,Urine 1+ /HPF (Negative); Bilirubin,Urine NEG (Negative); Blood,Urine SM (Negative); Color,Urine Yellow (Yellow); Mucus,Urine FEW /HPF; Protein,Urine <15 mg/dL mg/dL (Negative); Urobilinogen,Urine < 2.0 mg/dL (<2.0)
== END 2020-01-19 05:30 | disposition home or self-care (01) ==
LOC: ED 23:10
DX: G89.29 Other chronic pain (principal); M54.5 Low back pain; R53.1 Weakness; M54.2 Cervicalgia; I10 Essential (primary) hypertension; M19.90 Unspecified osteoarthritis, unspecified site
CPT/HCPCS: 36415; 70450; 71045; 72125; 80053; 81001; 83735; 84484; 85025; 93005; 93010; 96374; 99285; J2930; J7030

== ENCOUNTER 2021-08-07 19:39 | Emergency (ER) | payer MEDICARE ==
--- NOTE | 2021-08-07 21:36 | Emergency Department Report ---
ED Male HPI - General Chief complaint: Abdominal Pain Stated complaint: hematuria Time Seen by Provider: 08/07/21 21:07 Source: patient, EMS Mode of arrival: Stretcher Limitations: Physical Limitation - History of Present Illness Initial comments: Patient is a 56-year-old male who comes emergency room with lower abdominal pain and urinary retention and hematuria. Patient states he has a history of hematuria. Patient states he had a catheter in the past. Patient states he does not want a catheter this time but states he will take it if it is ne cessary.. Patient states he is urinating but in small amounts. Patient states he is also having burning when he urinates. Patient states that his abdominal pain is better with rest and worse with movement. Patient denies fever and chills. Patient denies GI bleed. Patient denies dark stool. Patient denies bright red blood per rectum. Patient denies nausea and vomiting. Patient denies recent travel. Patient denies recent international travel. Patient denies exposure to the novel coronavirus. Patient denies sick contacts. Patient denies fever and chills. Patient denies cough. Patient denies diarrhea. Patient denies coming in contact with anybody with symptoms of the novel coronavirus. Complaint: other -: Sudden, days(s) Severity: severe Severity scale (0 -10): 10 Quality: burning Consistency: constant Improves with: rest Worsens with: urination, movement urinary retention, blood in urine, dysuria. denies: discharge, swelling, mass, rash, fever, nausea/vomiting, incontinence - Related Data Sexually active: No Previous Rx's Medication Instructions Recorded Last Taken Type Lisinopril [Zestril] 20 mg PO BID #60 tablet 01/11/19 Unknown Rx atenoloL [Atenolol] 50 mg PO BID #60 tablet 01/11/19 Unknown Rx Acetaminophen [Acetaminophen TAB] 1,000 mg PO Q6HR #30 tablet 06/05/19 Unknown Rx hydroCHLOROthiazide [HCTZ] 25 mg PO QDAY #30 tablet 06/05/19 Unknown Rx lisinopriL [Zestril TAB] 40 mg PO QDAY #30 tablet 06/05/19 Unknown Rx atenoloL [Tenormin] 50 mg PO BID #60 tab 06/07/19 Unknown Rx cephALEXin [Keflex] 500 mg PO Q12HR #14 cap 06/08/19 Unknown Rx Cyclobenzaprine HCl [Flexeril 5 MG 5 mg PO TID PRN #15 tab 01/19/20 Unknown Rx TAB] methylPREDNISolone [Medrol 4MG 4 mg PO DAILY 6 Days #1 tab.ds.pk 01/19/20 Unknown Rx DOSEPAK (21 tabs)] Sulfamethoxazole/Trimethoprim 1 each PO BID 14 Days #28 tablet 08/08/21 Unknown Rx [Bactrim DS TAB] traMADoL [Ultram] 50 mg PO Q4HR PRN #12 tablet 08/08/21 Unknown Rx Allergies Allergy/AdvReac Type Severity Reaction Status Date / Time No Known Allergies Allergy Verified 06/07/19 21:43 ED Review of Systems ROS: Stated complaint: GI BLEED Other details as noted in HPI Constitutional: denies: chills, fever Eyes: denies: eye pain, eye discharge, vision change ENT: denies: ear pain, throat pain Respiratory: denies: cough, shortness of breath, wheezing Cardiovascular: denies: chest pain, palpitations Endocrine: no symptoms reported Gastrointestinal: as per HPI, abdominal pain. denies: nausea, diarrhea Genitourinary: as per HPI, dysuria, frequency, hematuria Musculoskeletal: denies: back pain, joint swelling, arthralgia Skin: denies: rash, lesions Neurological: denies: headache, weakness, paresthesias Psychiatric: denies: anxiety, depression Hematological/Lymphatic: denies: easy bleeding, easy bruising ED Past Medical Hx - Past Medical History Previous Medical History?: Yes Hx Hypertension: Yes Hx Arthritis: Yes Additional medical history: Obesity. Right Leg Polio. Chronic Pain uses a pain clinic ,gout - Surgical History Past Surgical History?: Yes Additional Surgical History: Rt & Left Leg. Left leg Knee Replacement - Family History Family history: no significant - Social History Smoking Status: Never Smoker Substance Use Type: None - Medications Home Medications: Home Medications Medication Instructions Recorded Confirmed Last Taken Type Lisinopril [Zestril] 20 mg PO BID #60 tablet 01/11/19 Unknown Rx atenoloL [Atenolol] 50 mg PO BID #60 tablet 01/11/19 Unknown Rx Acetaminophen [Acetaminophen TAB] 1,000 mg PO Q6HR #30 tablet 06/05/19 Unknown Rx hydroCHLOROthiazide [HCTZ] 25 mg PO QDAY #30 tablet 06/05/19 Unknown Rx lisinopriL [Zestril TAB] 40 mg PO QDAY #30 tablet 06/05/19 Unknown Rx atenoloL [Tenormin] 50 mg PO BID #60 tab 06/07/19 Unknown Rx cephALEXin [Keflex] 500 mg PO Q12HR #14 cap 06/08/19 Unknown Rx Cyclobenzaprine HCl [Flexeril 5 MG 5 mg PO TID PRN #15 tab 01/19/20 Unknown Rx TAB] methylPREDNISolone [Medrol 4MG 4 mg PO DAILY 6 Days #1 tab.ds.pk 01/19/20 Unknown Rx DOSEPAK (21 tabs)] Sulfamethoxazole/Trimethoprim 1 each PO BID 14 Days #28 tablet 08/08/21 Unknown Rx [Bactrim DS TAB] traMADoL [Ultram] 50 mg PO Q4HR PRN #12 tablet 08/08/21 Unknown Rx ED Physical Exam - General Limitations: Physical Limitation General appearance: alert, in no apparent distress - Head Head exam: Present: atraumatic, normocephalic - Eye Eye exam: Present: normal appearance - ENT ENT exam: Present: mucous membranes moist - Neck Neck exam: Present: normal inspection - Respiratory Respiratory exam: Present: normal lung sounds bilaterally. Absent: respiratory distress - Cardiovascular Cardiovascular Exam: Present: regular rate, normal rhythm. Absent: systolic murmur, diastolic murmur, rubs, gallop - GI/Abdominal GI/Abdominal exam: Present: soft, distended (Palpable bladder.), tenderness (Mild lower abdominal tenderness.), normal bowel sounds - Rectal Rectal exam: Present: deferred - Extremities Exam Extremities exam: Present: normal inspection - Back Exam Back exam: Present: normal inspection - Neurological Exam Neurological exam: Present: alert, oriented X3 - Psychiatric Psychiatric exam: Present: normal affect, normal mood - Skin Skin exam: Present: warm, dry, intact, normal color. Absent: rash ED Course - Reevaluation(s) Reevaluation #1: Patient agrees to have Johansen placed. 08/07/21 21:39 Reevaluation #2: Patient had a Johansen placed and the Johansen drained 2000 cc of bloody urine. Patient states he is feeling a little bit better but is still having a little bit of lower abdominal pain. 08/07/21 23:15 Reevaluation #3: I discussed all results and clinical findings with patient. I discussed plan of care with patient. Patient agrees with plan of care. Patient is stable for discharge. Patient will be discharged home. Patient given discharge instructions. Patient voiced understanding of discharge instructions. 08/08/21 01:13 ED Medical Decision Making - Lab Data Result diagrams: 08/07/21 21:38 08/07/21 21:38 - Radiology Data Radiology results: report reviewed CT abdomen pelvis w con INDICATION / CLINICAL INFORMATION: abd pain. TECHNIQUE: Axial CT images were obtained through the abdomen and pelvis after 100 cc of Omnipaque [address] scans at this location are performed using CT dose reduction for ALARA by means of automated exposure control. COMPARISON: None available. FINDINGS: LOWER CHEST: No significant abnormality LIVER: No significant abnormality GALLBLADDER/BILIARY TREE: No significant abnormality PANCREAS: No significant abnormality SPLEEN: No significant abnormality ADRENALS: No significant abnormality KIDNEYS / URETER: Bilateral renal cysts. No acute abnormality. No hydronephrosis. URINARY BLADDER: Johansen catheter is present within the bladder. Bladder is partially decompressed. There is extensive diffuse mural thickening of the bladder. 4.5 cm bladder diverticulum noted arising from the right posterior bladder. Perivesicular stranding is present. REPRODUCTIVE ORGANS: No significant abnormality STOMACH / BOWEL: No significant abnormality. The appendix is normal in caliber. LYMPH NODES: No significant adenopathy. VASCULATURE: No significant abnormality. OTHER: No free air, free fluid, or focal fluid collection is identified. SKELETAL SYSTEM: Gracile appearance of the bones. No acute osseous findings. IMPRESSION: 1. Johansen catheter partially decompresses the bladder. There is extensive diffuse mural thickening of the bladder with bladder diverticulum. Findings most likely reflect neurogenic bladder with superimposed severe acute cystitis. Underlying malignancy is unable to be excluded. 2. Otherwise, no acute process. Normal appearance of the kidneys. No evidence of pyelonephritis. - Medical Decision Making Patient is a 56-year-old male who presents emergency room with complaints of hematuria, lower abdominal pain, urinating small amounts and dysuria. Patient has had a history of urinary retention requiring catheterization. Patient had a Johansen catheter placed and he put out 2000 mL of bloody urine. Patient had a UA done which shows a UTI. Patient had labs done which were essentially unremarkable except for a UTI on UA and elevated WBC. Patient had a CT scan of the abdomen to rule out acute process. Patient CTA was negative for acute findi ngs. Patient given IV Rocephin while in ER. Patient complained of bladder spasms given Dilaudid. Patient responded well to treatment. Patient is pain was essentially resolved with the Johansen and the Dilaudid. Patient be discharged home. Patient stable for discharge. Patient does not require any further emergency medical service. Patient not require inpatient services. I discussed all results and clinical findings with patient. I discussed plan of care with patient. Patient agrees with plan of care. Patient is stable for discharge. Patient will be discharged home. Patient given discharge instructions. Patient voiced understanding of discharge instructions. Critical care time documented due to the multiple reassessments, prolonged time at the bedside, interpretation of diagnostics and labs. - Differential Diagnosis Urinary retention, hematuria, UTI, prostatitis, Critical Care Time: Yes Critical care time in (mins) excluding proc time.: 35 Critical care attestation.: If time is entered above; I have spent that time in minutes in the direct care of this critically ill patient, excluding procedure time. Critical Care Time: 35 minutes ED Disposition Clinical Impression: Urinary retention, Lower abdominal pain, Dysuria Urinary tract infection Qualifiers: Urinary tract infection type: acute cystitis Hematuria presence: with hematuria Qualified Code(s): N30.01 - Acute cystitis with hematuria Disposition: HOME / SELF CARE / HOMELESS Is pt being admited?: No Does the pt Need Aspirin: No Condition: Stable Instructions: Dysuria, Abdominal Pain, Adult, [id number], Antibiotic Medicine, Adult, [id number], Urinary Tract Infection, Adult, [id number], Acute Urinary Retention, Male, [id number] Additional Instructions: Patient to follow-up with primary care in 2 to 3 days. Patient to follow-up with urologist in 2 to 3 days. Patient to rest. Patient to increase water. Patient to avoid strenuous exercise or heavy lifting until cleared by urologist and primary care. Patient to keep Johansen in place until cleared by urologist. P atient to take Tylenol or ibuprofen as needed for pain. Patient to take meds as directed. Patient to return to the ER if condition worsens, changes or new symptoms arise. S Prescriptions: Sulfamethoxazole/Trimethoprim [Bactrim DS TAB] 1 each PO BID 14 Days #28 tablet traMADoL [Ultram] 50 mg PO Q4HR PRN #12 tablet PRN Reason: Pain Referrals: [facility] [Other] - 2-3 Days SOHAIL MOY MD [Staff Physician] - 2-3 Days Time of Disposition: 01:20
[2021-08-07 22:06] LABS: Hematocrit 42.9 % (35.5-45.6); Hemoglobin 13.5 gm/dl (11.8-15.2); Mean Corpuscular HGB Conc 32 % (32-34); Mean Corpuscular Volume 82 fl (84-94); Platelet Count 336 K/mm3 (140-440); Red Blood Count 5.26 M/mm3 (3.65-5.03); Red Cell Distribution Width 14.4 % (13.2-15.2)
[2021-08-07 22:26] LABS: Alanine Aminotransferase 11 units/L (7-56); Albumin 3.7 g/dL (3.9-5); Blood Urea Nitrogen 20 mg/dL (9-20); Calcium 8.5 mg/dL (8.4-10.2); Hemolysis Index 4
[2021-08-07 22:33] LABS: BUN/Creatinine Ratio 29
[2021-08-07 23:32] LABS: Bacteria,Urine 1+ /HPF (Negative); Bilirubin,Urine NEG (Negative); Blood,Urine LG (Negative); Color,Urine Red (Yellow); Urobilinogen,Urine < 2.0 mg/dL (<2.0)
[2021-08-07 23:34] LABS: Protein,Urine >500 mg/dL (Negative); RBC,Urine > 182.0 /HPF (0.0-6.0); WBC,Urine > 182.0 /HPF (0.0-6.0)
[2021-08-07] MEDS ORDERED: cefTRIAXone/NS 2 GM/100 ML 2 GM/100 ML BAG IV ONE (23:49)
--- NOTE | 2021-08-08 01:11 | Cat Scan Report ---
CT abdomen pelvis w con INDICATION / CLINICAL INFORMATION: abd pain. TECHNIQUE: Axial CT images were obtained through the abdomen and pelvis after 100 cc of Omnipaque [address] scans at this location are performed using CT dose reduction for ALARA by means of automated exposure control. COMPARISON: None available. FINDINGS: LOWER CHEST: No significant abnormality LIVER: No significant abnormality GALLBLADDER/BILIARY TREE: No significant abnormality PANCREAS: No significant abnormality SPLEEN: No significant abnormality ADRENALS: No significant abnormality KIDNEYS / URETER: Bilateral renal cysts. No acute abnormality. No hydronephrosis. URINARY BLADDER: Johansen catheter is present within the bladder. Bladder is partially decompressed. The re is extensive diffuse mural thickening of the bladder. 4.5 cm bladder diverticulum noted arising fr om the right posterior bladder. Perivesicular stranding is present. REPRODUCTIVE ORGANS: No significant abnormality STOMACH / BOWEL: No significant abnormality. The appendix is normal in caliber. LYMPH NODES: No significant adenopathy. VASCULATURE: No significant abnormality. OTHER: No free air, free fluid, or focal fluid collection is identified. SKELETAL SYSTEM: Gracile appearance of the bones. No acute osseous findings. IMPRESSION: 1. Johansen catheter partially decompresses the bladder. There is extensive diffuse mural thickening of the bladder with bladder diverticulum. Findings most likely reflect neurogenic bladder with superimpo sed severe acute cystitis. Underlying malignancy is unable to be excluded. 2. Otherwise, no acute process. Normal appearance of the kidneys. No evidence of pyelonephritis. Signer Name: Atul Arroyo MD Signed: 08/08/2021 1:07 AM Workstation Name: [id number]
[2021-08-08] MEDS ORDERED: HYDROmorphone 1 MG/1 ML INJ IV ONE (01:15)
[2021-08-08] MEDS ORDERED: ONDANSETRON 4 MG/2 ML INJ IV ONE (01:16)
== END 2021-08-08 03:05 | disposition home or self-care (01) ==
LOC: ED 19:39
DX: R10.30 Lower abdominal pain, unspecified (principal); R30.0 Dysuria; R33.9 Retention of urine, unspecified; I10 Essential (primary) hypertension; M19.90 Unspecified osteoarthritis, unspecified site; E66.9 Obesity, unspecified; G89.29 Other chronic pain; M10.9 Gout, unspecified; Z98.890 Other specified postprocedural states
CPT/HCPCS: 36415; 51702; 74177; 80053; 81001; 85027; 96365; 96375; 99284; J0696; J1170; J2405; Q9967